=== PATIENT | male | born 1960 | race Caucasian/White ===

== ENCOUNTER 2018-06-26 19:30 | Observation (INO) ==
[2018-06-26] MEDS ORDERED: Dextrose 50% in Water 50 ML Vial IV.PUSH PRN (22:42)
[2018-06-26] MEDS ORDERED: Sodium Chloride 0.9% 2 ML Flush PRN IV.FLUSH (22:52)
[2018-06-27] MEDS: Sod Chloride 0.9% Inj 1,000 ML IV.CONT SCH ×2 (03:52→14:20)
[2018-06-27] MEDS: Insulin NovoLOG Aspart Correctional Sugar Inj SQ SCH ×3 (03:55→11:31)
[2018-06-27 07:44] VITALS: RESP 18; O2SAT 96
--- NOTE | 2018-06-27 08:25 | US ---
EXAM DATE: 06/27/2018 12:00 AM EDT AGE/SEX: 57 years / Male INDICATIONS: Left sided numbness and slurred speech. CLINICAL DATA: This is the patient's initial encounter. Patient reports that signs and symptoms have been present for 1 day and indicates a pain score of 0/10. MEDICAL/SURGICAL HISTORY: Diabetes mellitus type II. Hypertension. Stroke. Harmon's Palsy. . Hernia repair. Brain surgery. Right hand surgery. COMPARISON: . VELOCITY PARAMETERS: ICA/CCA Ratio: Right 0.9 , Left 0.9 ICA: Right 78 cm/sec, Left 73 cm/sec CCA: Right 89 cm/sec, Left 81 cm/sec ECA: Right 124 cm/sec, Left 96 cm/sec Vertebral: Right 22 cm/sec antegrade, Left 34 cm/sec antegrade FINDINGS: Right Carotid: Mild arteriosclerotic plaque is visualized.The waveforms are within normal limits. Left Carotid: No significant plaque is visualized. The waveforms are within normal limits. Other: None. CONCLUSION: 1. Right Internal Carotid Artery: Findings indicate <50% stenosis. 2. Left Internal Carotid Artery: No significant stenosis or atherosclerotic plaque is visualized. Electronically signed by: Dannie Metz MD 06/27/2018 8:24 AM EDT
[2018-06-27] MEDS ORDERED: Sodium Chloride 0.9% 2 ML Flush BID IV.FLUSH SCH (09:00)
[2018-06-27] MEDS ORDERED: Aspirin 325 MG Tablet PO SCH (09:00)
[2018-06-27] MEDS ORDERED: Dexamethasone Inj 20 MG/5 ML Vial IM ONE (10:00)
[2018-06-27 10:04] VITALS: PULSE 70
[2018-06-27] MEDS ORDERED: Gadobutrol PF 10 MMOL/10 ML Vial (for RAD) IV.SIG ONE (10:10)
--- NOTE | 2018-06-27 10:15 | MR ---
EXAM DATE: 06/27/2018 8:58 AM EDT AGE/SEX: 57 years / Male INDICATIONS: CVA. Left sided facial weakness and numbness. CLINICAL DATA: This is the patient's subsequent encounter. Patient reports that signs and symptoms h ave been present for 2 days and indicates a pain score of 0/10. MEDICAL/SURGICAL HISTORY: Diabetes mellitus type II. Hypertension. Cerebrovascular disease. [place] palsy. Craniotomy. Umbilical hernia repair. Hand surgery. COMPARISON: C, MRA HEAD W/O CONTRAST, 06/27/2018. DL, CT HEAD W/O CONTRAST, 06/26/2018. . TECHNIQUE: Multiplanar, multisequence examination of the brain was performed without and with 10 ml G adavist (gadobutrol) contrast as a single exam dose. FINDINGS: Diffusion weighted images demonstrate no evidence for acute infarction. CSF spaces, ventricles and ci sterns are of normal size and configuration. There are scattered foci of increased FLAIR signal in th e subcortical white matter, centrum semiovale and periventricular white matter, most likely on the ba sis of mild chronic microvascular ischemic disease. There is a left thalamic lacunar infarct, nonacut e. No masses are seen. There is no hemorrhage. No abnormal areas of enhancement are identified follow ing contrast administration. CONCLUSION: 1. White matter disease. No evidence of acute infarction or mass. Electronically signed by: Pedro Lynne MD 06/27/2018 10:14 AM EDT
--- NOTE | 2018-06-27 10:15 | MR ---
EXAM DATE: 06/27/2018 8:58 AM EDT AGE/SEX: 57 years / Male INDICATIONS: CVA. Left sided facial numbness and weakness. CLINICAL DATA: This is the patient's subsequent encounter. Patient reports that signs and symptoms h ave been present for 2 days and indicates a pain score of 0/10. MEDICAL/SURGICAL HISTORY: Diabetes mellitus type II. Hypertension. Cerebrovascular disease. [place] palsy. Craniotomy. Umbilical hernia repair. Hand surgery. COMPARISON: [facility] [place] W & W/O CONTRAST, 06/27/2018. . TECHNIQUE: 3D [id number] MRA was performed. Source images, multiplanar STS MIP, and 3D volum e MIP reconstructions were reviewed. FINDINGS: Anterior Circulation: Intracranial Carotid Arteries: Patent. JAMA: There is no evidence for aneurysm, vessel truncation or stenosis, and no evidence for vascular m alformation. MCA: There is no evidence for aneurysm, vessel truncation or stenosis, and no evidence for vascular m alformation. Posterior Circulation: Distal Vertebral Arteries: The vertebral artery is nonvisualized with a prominent sized left vertebra l artery distally at the vertebrobasilar junction. Basilar Artery: There is no evidence for aneurysm, vessel truncation or stenosis, and no evidence for vascular malformation. TRAY DELIVERY AIDE and Cerebellar Branches: There is no evidence for aneurysm, vessel truncation or stenosis, and no evidence for vascular malformation. CONCLUSION: 1. Prominent distal left vertebral artery with nonvisualization of the right vertebral artery at the vertebrobasilar junction. This may reflect a dominant left vertebral artery with potentially right v ertebral artery terminating in PICA. MRA of the neck is pending. 2. Otherwise, unremarkable MRA examination of the [place]. Specifically, no evidence for la rge vessel occlusion. Electronically signed by: Dannie Metz MD 06/27/2018 10:14 AM EDT
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
--- NOTE | 2018-06-27 10:38 | MR ---
EXAM DATE: 06/27/2018 8:58 AM EDT AGE/SEX: 57 years / Male INDICATIONS: Stenosis. CLINICAL DATA: This is the patient's subsequent encounter. Patient reports that signs and symptoms h ave been present for 2 days and indicates a pain score of 0/10. MEDICAL/SURGICAL HISTORY: Diabetes mellitus type II. Hypertension. Cerebrovascular disease. [place] palsy. Craniotomy. Umbilical hernia repair. Hand surgery. [place] [facility] [place] [facility] [place], [place]/2018. [facility] [place]AST[place]/2018. . TECHNIQUE: 10 ml Gadavist (gadobutrol) contrast infused MRA (single exam dose) of the extracranial circulation was performed using a neurovascular coil. Postprocessing was performed, including rotati ng sub-volume maximum intensity projections of each carotid artery, rotating full-volume maximum inte nsity projections of both carotid arteries, sagittal and coronal sliding thin-slab reformations of ea ch carotid artery, and left oblique sliding thin-slab reformation through the aortic arch to include the origin of the arch branch vessels. FINDINGS: Aortic Arch : There is a three-vessel origin of the great vessels from the aorta. No evidence of o stial narrowing. Right Carotid : The common carotid artery is intact. The carotid bulb has a normal configuration wi thout ulceration or narrowing. The internal carotid artery lumen is smooth without stenosis. The ex ternal carotid artery is intact. Left Carotid : The common carotid artery is intact. The carotid bulb has a normal configuration wit hout ulceration or narrowing. The internal carotid artery lumen is smooth without stenosis. The ext ernal carotid artery is intact. Vertebrals : The vertebral arteries have a symmetric diameter. No stenotic lesions are seen. CONCLUSION: 1. Negative MRA Carotids. Percent stenosis is calculated using the diameter of the stenotic region over the diameter of the nor mal distal internal carotid artery Electronically signed by: Pedro Lynne MD 06/27/2018 10:36 EDMOND
[2018-06-27 12:02] VITALS: BP 118/78; TEMP 97.7
--- NOTE | 2018-06-27 12:16 | ECHRPT ---
Indication: CONCLUSIONS Technically difficult study. Normal left ventricular size. Wall thickness is normal. The left ventricular systolic function is normal with an estimated ejection fraction in the range o f 55-60%. No definite wall motion abnormalities. The aortic valve is not well visualized. Possible mild thickening of the aortic valve leaflets. There is trace tricuspid valve regurgitation. Atrial septal aneurysm is present. Difficult to rule out patent foramen ovale. If clinically indic ated, recommend agitated saline contrast study. BP: / HR: Rhythm: MEASUREMENTS (Male / Female) Normal Values Technical Quality: 2D ECHO LV Diastolic Diameter PLAX 5.7 cm 4.2 - 5.9 / 3.9 - 5.3 cm LV Systolic Diameter PLAX 4.5 cm IVS Diastolic Thickness 0.9 cm 0.6 - 1.0 / 0.6 - 0.9 cm LVPW Diastolic Thickness 1.0 cm 0.6 - 1.0 / 0.6 - 0.9 cm LV Relative Wall Thickness 0.3 RV Internal Dim ED PLAX 3.6 cm LVOT Diameter 2.2 cm Aortic Root Diameter 3.2 cm LA Systolic Diameter LX 4.7 cm 3.0 - 4.0 / 2.7 - 3.8 cm M-MODE AV Cusp Separation MM 2.1 cm DOPPLER AV Peak Velocity 91.7 cm/s AV Peak Gradient 3.4 mmHg AV Mean Gradient 2.0 mmHg AV Velocity Time Integral 17.9 cm LVOT Peak Velocity 88.7 cm/s LVOT Peak Gradient 3.1 mmHg LVOT Velocity Time Integral 18.4 cm AV Area Cont Eq vti 3.9 cm AV Area Cont Eq pk 3.7 cm Mitral E Point Velocity 55.3 cm/s Mitral A Point Velocity 81.4 cm/s Mitral E to A Ratio 0.7 LV E' Lateral Velocity 8.6 cm/s Mitral E to LV E' Lateral Ratio 6.4 LV E' Septal Velocity 6.9 cm/s Mitral E to LV E' Septal Ratio 8.0 TR Peak Velocity 221.0 cm/s TR Peak Gradient 19.5 mmHg Right Atrial Pressure 10.0 mmHg Pulmonary Artery Systolic Pressu 29.5 mmHg Right Ventricular Systolic Press 29.5 mmHg PV Peak Velocity 63.2 cm/s PV Peak Gradient 1.6 mmHg FINDINGS LEFT VENTRICLE Technically difficult study. Normal left ventricular size. Wall thickness is normal. The left ventricular systolic function is normal with an estimated ejection fraction in the range o f 55-60%. No definite wall motion abnormalities. RIGHT VENTRICLE Normal right ventricular size and systolic function. LEFT ATRIUM The left atrial size is normal. RIGHT ATRIUM The right atrial size is normal. ATRIAL SEPTUM Atrial septal aneurysm is present. Difficult to rule out patent foramen ovale. If clinically indic ated, recommend agitated saline contrast study. AORTA The aortic root and proximal ascending aorta are normal in size on limited imaging. MITRAL VALVE Structurally normal mitral valve. No mitral valve stenosis or regurgitation. AORTIC VALVE The aortic valve is not well visualized. Possible mild thickening of the aortic valve leaflets. TRICUSPID VALVE There is trace tricuspid valve regurgitation. PULMONARY VALVE The pulmonary valve is not well visualized. VESSELS The inferior vena cava is normal in size. PERICARDIUM No pericardial effusion. Robert Celis MD (Electronically Signed) Final Date:27 June 2018 12:15
[2018-06-27 12:53] LABS: Baso # (Auto) 0.1 th/mm3 (0.0-0.2); Baso % (Auto) 0.8 % (0.0-2.0); Eos # (Auto) 0.3 th/mm3 (0.0-0.4); Eos % (Auto) 3.8 % (0.0-4.0); Hematocrit 43.1 % (39.0-51.0); Hemoglobin 14.5 gm/dL (13.0-17.0); Lymph # (Auto) 1.7 th/mm3 (1.0-4.8); Lymph % (Auto) 20.9 % (9.0-44.0); Mean Corpuscular HGB Conc 33.7 % (32.0-36.0); Mean Corpuscular Hemoglobin 28.9 pg (27.0-34.0); Mean Corpuscular Volume 85.8 fL (80.0-100.0); Mean Platelet Volume 7.9 fL (7.0-11.0); Mono # (Auto) 0.5 th/mm3 (0.0-0.9); Mono % (Auto) 5.8 % (0.0-8.0); Neut # (Auto) 5.6 th/mm3 (1.8-7.7); Neut % (Auto) 68.7 % (16.0-70.0); Platelet Count 186 th/mm3 (150-450); Red Blood Count 5.03 mil/mm3 (4.50-5.90); White Blood Count 8.1 th/mm3 (4.0-11.0)
[2018-06-27 13:12] LABS: Calcium 8.4 mg/dL (8.5-10.1); Carbon Dioxide 27.8 meq/L (21.0-32.0); Potassium 3.7 meq/L (3.5-5.1)
[2018-06-27 13:16] LABS: Chol/HDL Ratio 5.98 Ratio; HDL Cholesterol 27.9 mg/dL (40.0-60.0)
[2018-06-27 13:38] LABS: Free T4 (Free Thyroxine) 1.1 ng/dL (0.76-1.46); Thyroid Stimulating Hormone 1.42 uIU/mL (0.358-3.740)
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
[2018-06-27 17:22] LABS: Hemoglobin A1c 6.3 % (4.3-6.0)
[2018-06-27] MEDS ORDERED: glipiZIDE 10 MG Tablet PO SCH (21:00)
[2018-06-27] MEDS ORDERED: Metoprolol Tartrate 25 MG Tablet PO SCH (21:00)
--- NOTE | 2018-06-27 21:37 | MG ---
cc: Alexi Raman MD ELECTROENCEPHALOGRAM RECORD NUMBER: [id number] DESCRIPTION: An 8-9 Hz alpha activity, 10-30 microvolts. Frequent eye movement and blink artifact. Attenuation while entering into drowsy state. A couple of tiny sharp transients, T3, epoch 31. Theta bursts and vertex waves transitioning to stage I sleep. Theta bursts, T3. Asymmetric tiny sharp transients, T3, epoch 82. Tiny phase reversal, epoch 105. Reduced driving photic stimulation. Frequent eye movement artifact occurring at that time. Single-lead EKG shows sinus rhythm. INTERPRETATION: Mild nonspecific changes in the left temporal region, awake and sleep electroencephalogram. Clinical correlation. MD TERENCE Arteaga/tip , 08:59 PM , 09:04 PM
[2018-06-28] MEDS ORDERED: Chlorthalidone 50 MG Tablet PO SCH (09:00)
[2018-06-28 12:04] LABS: Anti-Nuclear Antibody Screen Neg (Neg)
== END 2018-06-27 15:40 | disposition home or self-care (01) ==
LOC: NEPFCDU 06-27 01:15 → NEDDLT 06-27 01:15
PROVIDERS: ADMIT Hospitalist; ATTEND Hospitalist